=== PATIENT | female | born 1950 | race Caucasian/White ===

== ENCOUNTER → 2019-01-03 12:32 | Outpatient (CLI) | payer MEDICARE, OTHER, SELFPAY ==
--- NOTE | 2019-01-03 14:16 | DI.MRI.S_ITS ---
PROCEDURE: MR HIP RT WO CON INDICATIONS: Pain in right hip TECHNIQUE: Noncontrast coronal T1 spin echo and STIR through the bony pelvis. Coronal and axial T2 fast spin echo with fat saturation, sagittal T1 spin echo, and oblique axial T2 fast spin echo with fat saturation through the hip. COMPARISON: None. FINDINGS: Image quality: Excellent. Bones and joints: Symmetric appearing mild bilateral hip joint osteoarthritic changes are seen with superior joint space narrowing and subchondral sclerosis. No marrow edema. No intraosseous lesions or fractures. No avascular necrosis of the femoral heads. The visualized lower lumbar spine appears normally aligned. Tendons and ligaments: The gluteus medius and minimus tendons appear intact, without associated muscle atrophy. The nearby proximal iliotibial band also appears intact. The iliopsoas tendon appears intact, without adjacent bursal fluid collections or evidence for impingement syndrome. The origin of the hamstring tendon is intact at the ischial tuberosity, as well as the associated sacrotuberous ligament. The straight and reflected heads of the rectus femoris muscle origin appear intact, as well as the conjoint tendon. The ligamentum teres appears intact where visualized. Labrum and cartilage: In the absence of intra-articular contrast, there is a subtle signal abnormality and contour irregularity involving superior anterior labrum concerning for a superior anterior left hip labral tear. The alpha angle of the femur is within normal limits at less than 55 degrees. Soft tissues: Visualized muscles demonstrate normal bulk and internal signal. Quadratus femoris muscle demonstrates no internal edema to suggest ischiofemoral impingement. The proximal sciatic neurovascular bundle appears normal adjacent to the hamstring tendons. No free pelvic fluid. Bladder wall thickness is normal. Genitourinary structures and bowel loops appear normal where visualized. IMPRESSION: 1. Mild bilateral hip joint osteophytes. No marrow edema. No evidence of avascular necrosis. No fracture or dislocation. 2. Finding is concerning for focal left hip superior anterior labral tear. 3. No gross muscle or tendon signal abnormality. Dictated by: Santiago Dawkins M.D. on 01/03/2019 at 15:17 Approved by: Santiago Dawkins M.D. on 01/03/2019 at 15:23
== END ==
PROVIDERS: PCP Family Medicine; Visit Provider Orthopaedic Surgery
DX: M25.551 Pain in right hip (principal); M25.752 Osteophyte, left hip; M25.751 Osteophyte, right hip; M81.0 Age-related osteoporosis without current pathological fracture; Z78.0 Asymptomatic menopausal state; F17.200 Nicotine dependence, unspecified, uncomplicated
CPT/HCPCS: 73721; 77080

== ENCOUNTER → 2019-03-09 10:12 | Outpatient (CLI) | payer MEDICARE, OTHER, SELFPAY ==
--- NOTE | 2019-03-09 | DI.MRI.S_ITS ---
PROCEDURE: MR LUMBAR SPINE WO CON INDICATIONS: OTHER INTERVERTEBRAL DISC DEGENERATION, LUMBAR REG TECHNIQUE: Noncontrast sagittal T1 spin echo and T2 fast echo, sagittal STIR, axial T1 and T2 fast spin echo through the lumbar spine. In cases with scoliosis, additional coronal T2 fast spin echo may be performed. COMPARISON: [facility], MR, L-SPINE WITHOUT CONTRAST, 08/25/2008, 14:06. [facility], , SPINE LUMB 2 OR 3VW, 10/12/2016, 14:54. FINDINGS: Image quality: Excellent. Alignment and Curvature: There is normal bony alignment. Bone Marrow: Reactive endplate change is noted adjacent to the T12-L1, L2-L3, L3-L4, L4-L5 and L5-S1 disc. discs. No acute vertebral body compression fractures. Spinal Cord: Conus medullaris terminates at the L2 level. Visualized cord demonstrates normal signal and size. Paraspinous Soft Tissues: No paravertebral masses. T12-L1: Loss of disc signal and height. Mild, diffuse disc bulge. Mild narrowing of the central canal. Moderate bilateral neural foraminal narrowing. No neural impingement. L1-L2: Loss of disc signal. Mild, diffuse disc bulge. No central stenosis. Mild bilateral neural foraminal narrowing. No neural impingement. L2-L3: Loss of disc signal and slight loss of disc height. Mild, diffuse disc bulge. Mild bilateral facet hypertrophy. Mild narrowing of the central canal. Mild right and moderate left neural foraminal narrowing. No neural impingement. L3-L4: Loss of disc signal and height. Mild, diffuse disc bulge. Mild bilateral facet hypertrophy. Mild to moderate narrowing of the central canal. Moderate right and [id number] left neural foraminal narrowing with slight compression of the exiting left L3 nerve root. L4-L5: Loss of disc signal. Moderate, diffuse disc bulge. Mild bilateral facet hypertrophy. Severe ligamentum flavum hypertrophy. Moderate to severe narrowing of the central canal with mild compression of the nerve roots of cauda equina. Moderate to severe right and moderate left neural foraminal narrowing slight compression of the exiting right L4 nerve root. L5-S1: Loss of disc signal and height. Mild, diffuse disc bulge. Moderate bilateral facet hypertrophy. No central stenosis. Severe bilateral neural foraminal narrowing with compression of the exiting L5 nerve roots. IMPRESSION: 1. Multilevel degenerative disc disease. 2. Multilevel facet arthropathy. 3. Moderate to severe L4-L5 central canal narrowing. Mild to moderate L3-L4 central canal narrowing. Mild T12-L1 and L2-L3 central canal narrowing. 4. Severe bilateral L5-S1 with neural foraminal narrowing. Moderate to severe right and moderate left L4-L5 neural foraminal narrowing. Moderate right and [id number] left L3-L4 neural foraminal narrowing. Moderate bilateral T12-L1 neural foraminal narrowing. Mild right and moderate left L2-L3 neural foraminal narrowing. Mild bilateral L1-L2 neural foraminal narrowing. 5. Compression of the exiting bilateral L5 nerve roots secondary to neural foraminal narrowing. Slight compression of the exiting left L3 nerve root and the exiting right L4 nerve root secondary to neural foraminal narrowing. Please correlate with clinical data. Dictated by: Jing Henry MD, PhD on 03/11/2019 at 9:50 Approved by: Jing Henry MD, PhD on 03/11/2019 at 10:37
== END ==
PROVIDERS: PCP Family Medicine; Visit Provider Orthopaedic Surgery
DX: M51.36 Other intervertebral disc degeneration, lumbar region (principal); M51.37 Other intervertebral disc degeneration, lumbosacral region; M47.816 Spondylosis without myelopathy or radiculopathy, lumbar region; M47.817 Spondylosis without myelopathy or radiculopathy, lumbosacral region; M48.061 Spinal stenosis, lumbar region without neurogenic claudication; M48.07 Spinal stenosis, lumbosacral region; M48.05 Spinal stenosis, thoracolumbar region
CPT/HCPCS: 72148